=== PATIENT | male | born 1950 | race Caucasian/White ===

== ENCOUNTER → 2016-06-28 | Outpatient (CLI) | payer MEDICARE ==
[2016-06-28 10:23] LABS: ABSOLUTE BASOPHILS # (AUTO) 0.1 10^3/uL (0.0-0.2); ABSOLUTE EOSINOPHILS # (AUTO) 0.4 10^3/uL (0.0-0.6); ABSOLUTE LYMPHOCYTES (AUTO) 1.7 10^3/uL (0.5-4.7); ABSOLUTE MONOCYTES (AUTO) 0.7 10^3/uL (0.1-1.4); BASOPHILS % (AUTO) 0.9 % (0-2); EOSINOPHILS % (AUTO) 5.7 % (0-6); HEMATOCRIT 44.3 % (37.9-51.0); HEMOGLOBIN 14.7 g/dL (13.5-17.0); HGB HCT DIFFERENCE -0.2; LYMPHOCYTES % (AUTO) 25.3 % (13-45); MEAN CORPUSCULAR HGB CONC 33.2 g/dL (32.0-36.0); MEAN CORPUSCULAR VOLUME 78 fl (80-97); MONOCYTES % (AUTO) 9.9 % (3-13); RED BLOOD COUNT 5.65 10^6/uL (4.35-5.55); RED CELL DISTRIBUTION WIDTH 17.1 % (11.5-14.0); SEGMENTED NEUTROPHILS % (AUTO) 58.2 % (42-78); WHITE BLOOD COUNT 6.8 10^3/uL (4.0-10.5)
[2016-06-28 10:33] LABS: APPEARANCE,URINE CLEAR; BILIRUBIN,URINE NEGATIVE (NEGATIVE); GLUCOSE, URINE NEGATIVE (NEGATIVE); KETONES,URINE NEGATIVE (NEGATIVE); LEUKOCYTE ESTERASE,URINE NEGATIVE (NEGATIVE); NITRITE,URINE NEGATIVE (NEGATIVE); PROTEIN,URINE NEGATIVE (NEGATIVE); URINE SPECIFIC GRAVITY 1.012; UROBILINOGEN,URINE NEGATIVE mg/dL (<2.0)
[2016-06-28 10:40] LABS: ANION GAP 15 (5-19); BLOOD UREA NITROGEN 16 mg/dL (7-20); CALCIUM 9.8 mg/dL (8.4-10.2); CARBON DIOXIDE 27 mmol/L (22-30); CHLORIDE 101 mmol/L (98-107); CREATININE RESULT 0.78 mg/dL (0.52-1.25); GLUCOSE 115 mg/dL (75-110); POTASSIUM 3.9 mmol/L (3.6-5.0); SODIUM 142.7 mmol/L (137-145)
== END ==
LOC: OD 09:39
PROVIDERS: ATTEND Orthopaedic Surgery
DX: Z01.810 Encounter for preprocedural cardiovascular examination (principal); Z01.811 Encounter for preprocedural respiratory examination; Z01.818 Encounter for other preprocedural examination; Z79.899 Other long term (current) drug therapy; E11.9 Type 2 diabetes mellitus without complications; M17.12 Unilateral primary osteoarthritis, left knee
CPT/HCPCS: 36415; 71020; 80048; 81001; 83036; 85025

== ENCOUNTER → 2016-07-05 | Outpatient (CLI) | payer MEDICARE, MEDICAID ==
--- NOTE | 2016-07-05 18:24 | EKG REPORT ---
SEVERITY:- NORMAL ECG - SINUS RHYTHM : Confirmed by: Arnel Zhang MD 05-Jul-2016 18:24:11
== END ==
LOC: OD 14:01
PROVIDERS: ATTEND Orthopaedic Surgery
DX: M17.12 Unilateral primary osteoarthritis, left knee (principal)
CPT/HCPCS: 93005; 93010

== ENCOUNTER 2016-07-24 06:43 | Inpatient (IN) | payer MEDICARE, MEDICAID ==
[~2016-07-24 06:43] MED LIST: BUPIVACAINE INJ/PF LIPOSOME/PF 266 MG/20 ML SDV INFIL PRN; IBUPROFEN 800 MG in NORMAL SALINE 250 ML IV PRN; LACTATED RINGERS 1000 ML IV PRN; LANSOPRAZOLE 15 MG TAB.RAP.DR PO PRN; OXYCODONE HCL SR 10 MG TABLET PO PRN; SCOPOLAMINE HYDROBROMIDE 1.5 MG PATCH.TD72 TD PRN; VANCOMYCIN HCL 1,000 MG in DEXTROSE 5%-WATER 250 ML IV PRN
[2016-07-24 07:31] LABS: PROTHROMBIN TIME 11.7 SEC (11.4-15.4)
[2016-07-24] MEDS ORDERED: CEFAZOLIN INJ 1 GM VIAL ONE (07:31)
[2016-07-24 07:32] LABS: PARTIAL THROMBOPLASTIN TIME 28.8 SEC (23.5-35.8)
[2016-07-24] MEDS ORDERED: FENTANYL CITRATE INJ/PF 100 MCG/2 ML AMPUL ONE (07:43)
[2016-07-24] MEDS ORDERED: MIDAZOLAM 2 MG/2 ML INJ ONE (07:43)
[2016-07-24] MEDS ORDERED: KETAMINE HCL INJ 500 MG/10 ML VIAL ONE (07:43)
[2016-07-24] MEDS ORDERED: TRANEXAMIC ACID INJ/PF 1,000 MG/10 ML SDV IV ONE (07:44)
[2016-07-24] MEDS ORDERED: PROPOFOL INJ 200 MG/20 ML VIAL IV ONE (07:44)
[2016-07-24] MEDS ORDERED: DEXMEDETOMIDINE INJ 80 MCG/20 ML VIAL IV ONE (07:44)
[2016-07-24] MEDS ORDERED: THROMBIN (BOVINE) TOPICAL 20000 UNIT VIAL ONE (08:01)
[2016-07-24] MEDS ORDERED: THROMBIN (BOVINE) TOPICAL 5000 UNIT VIAL ONE (08:01)
[2016-07-24] MEDS ORDERED: BUPIVACAINE INJ/PF LIPOSOME/PF 266 MG/20 ML SDV ONE (08:02)
[2016-07-24] MEDS ORDERED: MORPHINE SULFATE 10 MG/ML INJ ONE (09:06)
[2016-07-24] MEDS ORDERED: ACETAMINOPHEN 325 MG TABLET PO PRN (09:39)
[2016-07-24] MEDS ORDERED: ZOLPIDEM TARTRATE 5 MG TABLET PO PRN (09:41)
[2016-07-24] MEDS ORDERED: MORPHINE SULFATE 10 MG/ML INJ IM PRN (09:41)
[2016-07-24] MEDS ORDERED: ONDANSETRON 4 MG TAB.RAPDIS PO PRN (09:41)
[2016-07-24] MEDS ORDERED: ONDANSETRON HCL INJ/PF 4 MG/2 ML SDV IV PRN (09:41)
[2016-07-24] MEDS ORDERED: MAG HYDROX/AL HYDROX/SIMETH SUSP 30 ML UDCUP PO PRN (09:41)
[2016-07-24] MEDS ORDERED: RINGERS SOLUTION,LACTATED 1,000 ML IV PRN (09:41)
[2016-07-24] MEDS ORDERED: DIPHENHYDRAMINE HCL 50 MG/ML VIAL IV PRN (09:41)
[2016-07-24] MEDS ORDERED: MORPHINE SULFATE 10 MG/ML INJ IV PRN ×2 (09:41)
--- NOTE | 2016-07-24 09:51 | Operative Report ---
Operative Report DATE OF SURGERY: 07/24/16 PREOPERATIVE DIAGNOSIS: Right knee arthritis OPERATION: Right knee arthroplasty SURGEON: SWATI MONZON ANESTHESIA: GA TISSUE REMOVED OR ALTERED: Bone to pathology ESTIMATED BLOOD LOSS: 150 PROCEDURE: Implants used: Femur: Striker triathlon #7 CR femur Tibia:, #6 tibia Tibial liner:, 9 mm CS insert Patella:, 38 mm oval patella Procedure with the patient supine on the operating table the. Right the limb is prepped and draped in a sterile fashion. The limb was elevated for exsanguination and the tourniquet inflated to 280 torr. A standard midline median parapatellar approach the knee is taken. Access is gained to the femoral canal through the intercondylar notch. Intramedullary alignment instrumentation used to resect 10 mm of distal femur in 5 of valgus. Sizing guide indicated a size 7 femur. Appropriate cutting jig is then used to fashion anterior posterior and chamfer cuts. A trial reduction femurs performed and this is judged to be adequate. Attention was next turned to the tibia. Using an extra medullary alignment system 9 millimeters was resected off the lateral tibial plateau. This is sized to a size 6 tibia. A trial reduction was now performed with a 7 femur and 6 tibia using a 9 millimeters spacer. It is full extension and central patellofemoral tracking. The articular surface the patella was next resected using an oscillating saw. All trial implants were removed. Polymethylmethacrylate is mixed and used to cement the above implants in place. On adequate curing the cement excess cement was removed the tourniquet was deflated hemostasis obtained the wound is then closed in layers using interrupted Vicryl followed by liberty. A sterile compressive dressing was applied and the patient returned to recovery room in satisfactory condition.
[2016-07-24] MEDS ORDERED: (PENDING PHARMACY ID) (Metformin Hcl [Glucophage] 500 MG) PO SCH (10:00)
[2016-07-24] MEDS ORDERED: METFORMIN HCL 500 MG TABLET PO ONE (11:30)
[2016-07-24] MEDS ORDERED: DEXTROSE 50%-WATER SYRINGE 25 GM/50 ML DOSE IV PRN (11:44)
[2016-07-24] MEDS ORDERED: INSULIN LISPRO 100 UNIT/ML 3 ML VIAL SUBCUT PRN (11:44)
[2016-07-24] MEDS ORDERED: GLUCAGON,HUMAN RECOMB 1 MG INJ IM PRN (11:44)
[2016-07-24] MEDS ORDERED: DEXTROSE 40% GEL 15 GM TUBE PO PRN (11:44)
[2016-07-24] MEDS ORDERED: DEXTROSE 50%-WATER SYRINGE 12.5 GM/25 ML DOSE IV PRN (11:44)
[2016-07-24] MEDS ORDERED: DEXTROSE 40% GEL 15 GM TUBE X 2 PO PRN (11:44)
[2016-07-24] MEDS ORDERED: PREGABALIN 75 MG CAPSULE PO ONE (12:00)
[2016-07-24] MEDS: MORPHINE SULFATE 10 MG/ML INJ IV PRN ×3 (13:13→20:38)
[2016-07-24] MEDS ORDERED: GLYCOPYRROLATE INJ 0.4 MG/2 ML VIAL ONE (14:37)
[2016-07-24] MEDS ORDERED: ONDANSETRON HCL INJ/PF 4 MG/2 ML SDV ONE (14:37)
[2016-07-24] MEDS ORDERED: METOCLOPRAMIDE HCL INJ/PF 10 MG/2 ML SDV ONE (14:37)
[2016-07-24] MEDS ORDERED: SUCCINYLCHOLINE CHLORIDE INJ 200 MG/10 ML VIAL ONE (14:37)
[2016-07-24] MEDS ORDERED: LIDOCAINE 2% INJ-PF (20 MG/ML) 10 ML AMPUL ONE (14:37)
[2016-07-24] MEDS ORDERED: NEOSTIGMINE METHYLSULFATE 10 MG/10 ML VIAL ONE (14:37)
[2016-07-24] MEDS ORDERED: PHENYLEPHRINE HCL INJ/PF 10 MG/1 ML SDV ONE (14:37)
[2016-07-24] MEDS: IBUPROFEN 800 MG in NORMAL SALINE 250 ML IV SCH ×2 (14:48→21:50)
[2016-07-24] MEDS: PRENATAL VITAMIN W-O CA NO5/FE FUMARATE/FA CAPSULE PO SCH (14:49)
[2016-07-24] MEDS: SENNOSIDES/DOCUSATE 8.6-50 MG 1 EACH TABLET PO SCH (17:26)
[2016-07-24] MEDS: APIXABAN 5 MG TABLET PO SCH (17:27)
[2016-07-24] MEDS: METFORMIN HCL 500 MG TABLET PO SCH (17:27)
[2016-07-24] MEDS ORDERED: (PENDING PHARMACY ID) (Pravastatin Sodium [Pravastatin Sodium] 40 MG) PO SCH (18:00)
[2016-07-24] MEDS ORDERED: VANCOMYCIN HCL 1,000 MG in DEXTROSE 5%-WATER 250 ML IV ONE (21:40)
[2016-07-24] MEDS: ATORVASTATIN CALCIUM 10 MG TABLET PO SCH (21:51)
[2016-07-24] MEDS: OXYCODONE HCL SR 10 MG TABLET PO SCH (21:51)
[2016-07-24] MEDS: PREGABALIN 75 MG CAPSULE PO SCH (21:52)
[2016-07-25] MEDS: LANSOPRAZOLE 30 MG TAB.RAP.DR PO SCH (05:45)
[2016-07-25] MEDS: MORPHINE SULFATE 10 MG/ML INJ IV PRN (05:46)
[2016-07-25] MEDS: IBUPROFEN 800 MG in NORMAL SALINE 250 ML IV SCH ×3 (05:46→22:23)
[2016-07-25 06:33] LABS: HEMATOCRIT 33.7 % (37.9-51.0); HEMOGLOBIN 11.4 g/dL (13.5-17.0); HGB HCT DIFFERENCE 0.5; MEAN CORPUSCULAR HEMOGLOBIN 26.8 pg (27.0-33.4); MEAN CORPUSCULAR HGB CONC 33.9 g/dL (32.0-36.0); MEAN CORPUSCULAR VOLUME 79 fl (80-97); RED BLOOD COUNT 4.27 10^6/uL (4.35-5.55); RED CELL DISTRIBUTION WIDTH 16.3 % (11.5-14.0); WHITE BLOOD COUNT 7.3 10^3/uL (4.0-10.5)
[2016-07-25 06:52] LABS: ANION GAP 10 (5-19); BLOOD UREA NITROGEN 12 mg/dL (7-20); CALCIUM 9.2 mg/dL (8.4-10.2); CARBON DIOXIDE 27 mmol/L (22-30); CHLORIDE 104 mmol/L (98-107); CREATININE RESULT 0.61 mg/dL (0.52-1.25); GLUCOSE 138 mg/dL (75-110); POTASSIUM 4.1 mmol/L (3.6-5.0)
--- NOTE | 2016-07-25 06:53 | PDOC PROGRESS REPORT ---
Subjective Progress Note for:: 07/25/16 Subjective:: Patient was quite happy with his postoperative course. His preoperative pain is completely alleviated. Physical Exam Vital Signs: Temp Pulse Resp BP Pulse Ox 36.3 C 98 18 135/74 H 98 07/24/16 20:14 07/24/16 20:14 07/24/16 20:14 07/24/16 20:14 07/24/16 20:14 Intake & Output 07/23/16 07/24/16 07/25/16 06:59 06:59 06:59 Intake Total 6304 Output Total 3925 Balance 2379 General appearance: PRESENT: no acute distress Head exam: PRESENT: normocephalic Respiratory exam: PRESENT: unlabored Cardiovascular exam: PRESENT: RRR Pulses: PRESENT: +1 pedal pulses bilateral Vascular exam: PRESENT: normal capillary refill GI/Abdominal exam: PRESENT: soft Extremities exam: PRESENT: other - Right lower extremity dressing has been reinforced. Distal neurovascular examinations intact. Psychiatric exam: PRESENT: appropriate affect, normal mood. ABSENT: homicidal ideation, suicidal ideation Results Laboratory Results: 07/25/16 06:04 07/24/16 07/25/16 07:12 06:04 WBC 7.3 RBC 4.27 L Hgb 11.4 L Hct 33.7 L MCV 79 L MCH 26.8 L MCHC 33.9 RDW 16.3 H Plt Count 231 Potassium 4.0 Impressions: Knee X-Ray 07/24/16 09:42 IMPRESSION: SATISFACTORY POSTOPERATIVE right KNEE. Status: Imported from PACS Assessment & Plan - Diagnosis (1) Arthritis of right knee Is this a current diagnosis for this admission?: YesPlan: 65-year-old white male with multiple ongoing medical issues who is now postop day 1 from right total knee arthroplasty. Plan will be for mobilization with physical therapy and weightbearing as tolerated basis. - Time Time Spent with patient: 15-24 minutes Critical Time spent with patient: 15-24 minutes Anticipated discharge: Home with Homehealth Within: within 24 hours
[2016-07-25] MEDS: METFORMIN HCL 500 MG TABLET PO SCH ×2 (09:32→17:25)
[2016-07-25] MEDS: PRENATAL VITAMIN W-O CA NO5/FE FUMARATE/FA CAPSULE PO SCH (09:32)
[2016-07-25] MEDS: FUROSEMIDE 40 MG TABLET PO SCH (09:32)
[2016-07-25] MEDS: OXYCODONE HCL SR 10 MG TABLET PO SCH ×2 (09:34→22:23)
[2016-07-25] MEDS: POTASSIUM CHLORIDE 10 MEQ TABLET.SA PO SCH (09:40)
[2016-07-25] MEDS: APIXABAN 5 MG TABLET PO SCH ×2 (09:41→17:25)
[2016-07-25] MEDS: PREGABALIN 75 MG CAPSULE PO SCH ×2 (09:41→22:23)
[2016-07-25] MEDS: SENNOSIDES/DOCUSATE 8.6-50 MG 1 EACH TABLET PO SCH ×2 (09:41→17:25)
[2016-07-25] MEDS: OXYCODONE HCL IR 5 MG TABLET PO PRN (14:11)
[2016-07-25] MEDS: ATORVASTATIN CALCIUM 10 MG TABLET PO SCH (22:23)
[2016-07-26] MEDS: OXYCODONE HCL IR 5 MG TABLET PO PRN (04:50)
[2016-07-26] MEDS: IBUPROFEN 800 MG in NORMAL SALINE 250 ML IV SCH (06:04)
[2016-07-26] MEDS: LANSOPRAZOLE 30 MG TAB.RAP.DR PO SCH (06:04)
--- NOTE | 2016-07-26 07:25 | PDOC DISCHARGE SUMMARY ---
General - Admit/Disc Date/PCP Admission Date/Primary Care Provider: 07/24/16 06:44 ZACK HARTLEY, Discharge Date: 07/26/16 - Discharge Diagnosis (1) Arthritis of right knee Is this a current diagnosis for this admission?: Yes - Additional Information Resuscitation Status: Full Code Discharge Diet: As Tolerated, Diabetic Discharge Activity: Balance Activity w/Rest Home Medications: Metformin HCl [Glucophage] 500 mg PO BID 09/24/14 Furosemide [Lasix] 40 mg PO QAM 07/12/16 Potassium Chloride [Klor-Con 10] 10 meq PO QAM 07/12/16 Apixaban [Eliquis 5 mg Tablet] 5 mg PO BID #0 tablet 07/26/16 Atorvastatin Calcium [Lipitor 10 mg Tablet] 10 mg PO QHS #0 tablet 07/26/16 Oxycodone HCl [Oxy-Ir 5 mg Tablet] 5 mg PO Q6HP PRN #0 tablet 07/26/16 History of Present Illness History of Present Illness: NINO ZELAYA is a 65 year old male who presented with progressive right knee pain and functional disability secondary osteoarthritis. Is admitted for elective right knee arthroplasty. Hospital Course Hospital Course: The patient is admitted through the operating room where he undergoes uncomplicated right knee arthroplasty. His returned to floor in satisfactory condition. Makes excellent progress with physical therapy for weightbearing as tolerated ambulation. Range of motion. His dressing is changed on postop day 2. Wound is clean dry and intact. Physical Exam Vital Signs: Temp Pulse Resp BP Pulse Ox 36.7 C 108 H 20 138/69 H 97 07/25/16 23:53 07/25/16 23:53 07/25/16 23:53 07/25/16 23:53 07/25/16 23:53 Intake & Output 07/25/16 07/26/16 07/27/16 06:59 06:59 06:59 Intake Total 6306 940 Output Total 6793 1130 Balance 2379 -810 General appearance: PRESENT: no acute distress Head exam: PRESENT: normocephalic Respiratory exam: PRESENT: unlabored Cardiovascular exam: PRESENT: RRR Vascular exam: PRESENT: normal capillary refill GI/Abdominal exam: PRESENT: soft Rectal exam: PRESENT: deferred Extremities exam: PRESENT: other - Right lower extremity dressing is changed on postop day 2. Wound is well approximated with liberty. There is no erythema. There is no active drainage. Distal neurovascular examinations intact. Psychiatric exam: PRESENT: appropriate affect, normal mood. ABSENT: homicidal ideation, suicidal ideation Results Laboratory Results: 07/25/16 06:04 07/25/16 06:04 Impressions: Knee X-Ray 07/24/16 09:42 IMPRESSION: SATISFACTORY POSTOPERATIVE right KNEE. Status: Imported from PACS Qualifiers VTE patient discharged on overlapping Therapy?: Yes Plan Discharge Plan: Patient be discharged home with home health physical therapy, home health nursing, we'll Walker, bedside commode. Follow-up with Dr. Burris in the [facility] for surgery approximately 2 weeks for staple removal. Time Spent: Less than 30 Minutes
[2016-07-26 07:38] LABS: HEMATOCRIT 31.8 % (37.9-51.0); HEMOGLOBIN 10.8 g/dL (13.5-17.0); HGB HCT DIFFERENCE 0.6; MEAN CORPUSCULAR HEMOGLOBIN 26.8 pg (27.0-33.4); MEAN CORPUSCULAR HGB CONC 34.1 g/dL (32.0-36.0); MEAN CORPUSCULAR VOLUME 79 fl (80-97); RED BLOOD COUNT 4.05 10^6/uL (4.35-5.55); RED CELL DISTRIBUTION WIDTH 16.4 % (11.5-14.0); WHITE BLOOD COUNT 8.6 10^3/uL (4.0-10.5)
[2016-07-26] MEDS: METFORMIN HCL 500 MG TABLET PO SCH (08:20)
[2016-07-26] MEDS: FUROSEMIDE 40 MG TABLET PO SCH (08:21)
[2016-07-26] MEDS: POTASSIUM CHLORIDE 10 MEQ TABLET.SA PO SCH (08:21)
[2016-07-26] MEDS: PREGABALIN 75 MG CAPSULE PO SCH (09:16)
[2016-07-26] MEDS: PRENATAL VITAMIN W-O CA NO5/FE FUMARATE/FA CAPSULE PO SCH (09:16)
[2016-07-26] MEDS: OXYCODONE HCL SR 10 MG TABLET PO SCH (09:16)
[2016-07-26] MEDS: APIXABAN 5 MG TABLET PO SCH (09:17)
[2016-07-26] MEDS: SENNOSIDES/DOCUSATE 8.6-50 MG 1 EACH TABLET PO SCH (09:17)
[2016-07-26] MEDS: MORPHINE SULFATE 10 MG/ML INJ IV PRN (11:31)
[2016-07-26 12:20] VITALS: BP 121/70
== END 2016-07-26 13:33 | disposition home health service (06) | DRG 470 ==
LOC: UNDOADMIN 06:43 → INOR 06:43 → UNDOADMIN 09:41 → INOR 09:41 → 4S 11:44
PROVIDERS: ADMIT Orthopaedic Surgery; ATTEND Orthopaedic Surgery
PROC: 0SRC0J9 Replacement of Right Knee Joint with Synthetic Substitute, Cemented, Open Approach (ICD-10-PCS; principal; 2016-07-24 08:45)
DX: M17.11 Unilateral primary osteoarthritis, right knee (principal); C91.10 Chronic lymphocytic leukemia of B-cell type not having achieved remission; E11.9 Type 2 diabetes mellitus without complications; J44.9 Chronic obstructive pulmonary disease, unspecified; I10 Essential (primary) hypertension; J45.909 Unspecified asthma, uncomplicated; M54.9 Dorsalgia, unspecified; K76.0 Fatty (change of) liver, not elsewhere classified; G47.30 Sleep apnea, unspecified; F32.9 Major depressive disorder, single episode, unspecified; F41.9 Anxiety disorder, unspecified; M06.9 Rheumatoid arthritis, unspecified; Z96.652 Presence of left artificial knee joint; Z96.641 Presence of right artificial hip joint; G43.909 Migraine, unspecified, not intractable, without status migrainosus; D50.9 Iron deficiency anemia, unspecified; Z92.21 Personal history of antineoplastic chemotherapy; Z79.02 Long term (current) use of antithrombotics/antiplatelets; Z86.718 Personal history of other venous thrombosis and embolism; Z90.49 Acquired absence of other specified parts of digestive tract; Z79.84 Long term (current) use of oral hypoglycemic drugs; Z87.891 Personal history of nicotine dependence
CPT/HCPCS: 01402; 36415; 80048; 82962; 84132; 85027; 85610; 85730; 88305; 88311; 94799; C2625; C9290; G8978-GP; G8979-GP; G8987-GO; G8988-GO; J0330; J0690; J1200; J1741; J2250; J2270; J2370; J2405; J2704; J2765; J3010; J3370; J3490; J7050; J7060

== ENCOUNTER 2016-09-09 12:13 | Emergency (ER) | payer MEDICARE, MEDICAID ==
--- NOTE | 2016-09-09 12:24 | ER Document Report ---
ED Medical Screen (RME) - General Stated Complaint: URINARY PROBLEM Mode of Arrival: Ambulatory Information source: Patient Notes: Patient presents to the emergency department with reports of noted blood in his urine. Reports flank pain days ago no pain now. Denies fever vomiting diarrhea. Reports history of kidney stones. Reports decreased urine output now. Recent knee replaced 6 weeks ago. I have greeted and performed a rapid initial assessment of this patient. A comprehensive ED assessment and evaluation of the patient, analysis of test results and completion of the medical decision making process will be conducted by additional ED providers. TRAVEL OUTSIDE OF THE [place] IN LAST 30 DAYS: No - Related Data Allergies/Adverse Reactions: adhesive tape [Adhesive Tape] Adverse Reaction (Intermediate, Verified 09/09/16 12:23) SKIN TEARS/PEELS Past Medical History - Past Medical History Cardiac Medical History: Reports: Hx Congestive Heart Failure, Hx Hypercholesterolemia, Hx Hypertension, Hx Pulmonary Embolism Denies: Hx Atrial Fibrillation, Hx Coronary Artery Disease, Hx Heart Attack, Hx Peripheral Vascular Disease, Hx Heart Murmur Pulmonary Medical History: Reports: Hx Asthma - pediatric, Hx Bronchitis, Hx COPD, Hx Pneumonia, Hx Respiratory Failure, Hx Sleep Apnea - Dx'ed 2005, Does not use CPAP at this time Denies: Hx Tuberculosis Neurological Medical History: Denies: Hx Cerebrovascular Accident, Hx Seizures Endocrine Medical History: Reports: Hx Diabetes Mellitus Type 2. Denies: Hx Graves' Disease, Hx Hyperthyroidism, Hx Hypothyroidism Renal/ Medical History: Reports: Hx Benign Prostatic Hyperplasia - nocturia x 2/night, Hx Epididymitis, Hx Kidney Stones - "multiple", denies ESWL and/or surgery. Denies: Hx End Stage Renal Disease, Hx Peritoneal Dialysis Malignancy Medical History: Reports Hx Leukemia - Chronic lymphocytic leukemia 2015, Denies Hx Lung Cancer GI Medical History: Reports: Hx Cirrhosis. Denies: Hx Crohn's Disease, Hx Gastroesophageal Reflux Disease, Hx Hiatal Hernia, Hx Irritable Bowel, Hx Liver Failure - Cirrhosis, Fatty Liver, Hx Ulcer Musculoskeltal Medical History: Reports Hx Arthritis, Denies Hx Fibromyalgia, Denies Hx Multiple Sclerosis, Denies Hx Muscular Dystrophy Psychiatric Medical History: Reports: Hx Anxiety, Hx Depression - Anxiety Denies: Hx Bipolar Disorder, Hx Dementia, Hx Post Traumatic Stress Disorder, Hx Schizophrenia Traumatic Medical History: Denies: Hx Fractures Infectious Medical History: Denies: Hx HIV Past Surgical History: Reports: Hx Abdominal Surgery, Hx Appendectomy, Hx Bowel Surgery, Hx Orthopedic Surgery - R hip replaced and revised, L knee replaced, cervical fusion, lumbar fusion. Denies: Hx Cholecystectomy, Hx Colostomy, Hx Coronary Artery Bypass Graft, Hx Gastric Bypass Surgery, Hx Herniorrhaphy, Hx Pacemaker, Hx Tonsillectomy - Immunizations Hx Diphtheria, Pertussis, Tetanus Vaccination: No
[2016-09-09 12:53] LABS: ABSOLUTE EOSINOPHILS # (AUTO) 0.2 10^3/uL (0.0-0.6); ABSOLUTE LYMPHOCYTES (AUTO) 1.8 10^3/uL (0.5-4.7); ABSOLUTE MONOCYTES (AUTO) 0.6 10^3/uL (0.1-1.4); ABSOLUTE NEUT (AUTO) 5.2 10^3/uL (1.7-8.2); BASOPHILS % (AUTO) 0.6 % (0-2); EOSINOPHILS % (AUTO) 2.9 % (0-6); HEMATOCRIT 37.8 % (37.9-51.0); HEMOGLOBIN 12.9 g/dL (13.5-17.0); HGB HCT DIFFERENCE 0.9; MEAN CORPUSCULAR HEMOGLOBIN 27.6 pg (27.0-33.4); MEAN CORPUSCULAR HGB CONC 34.1 g/dL (32.0-36.0); MEAN CORPUSCULAR VOLUME 81 fl (80-97); MONOCYTES % (AUTO) 7.9 % (3-13); RED BLOOD COUNT 4.67 10^6/uL (4.35-5.55); RED CELL DISTRIBUTION WIDTH 14.9 % (11.5-14.0); SEGMENTED NEUTROPHILS % (AUTO) 65.6 % (42-78)
[2016-09-09 12:58] LABS: PROTHROMBIN TIME 11.9 SEC (11.4-15.4)
[2016-09-09 12:59] LABS: PARTIAL THROMBOPLASTIN TIME 34.3 SEC (23.5-35.8)
[2016-09-09 13:13] LABS: ALANINE AMINOTRANSFERASE 28 U/L (21-72); ALBUMIN 4.3 g/dL (3.5-5.0); ALKALINE PHOSPHATASE 71 U/L (38-126); ANION GAP 17 (5-19); APPEARANCE,URINE CLOUDY; ASPARTATE AMINO TRANSFERASE 20 U/L (17-59); BILIRUBIN,DIRECT 0.2 mg/dL (0.0-0.4); BILIRUBIN,TOTAL 1.1 mg/dL (0.2-1.3); BILIRUBIN,URINE NEGATIVE (NEGATIVE); BLOOD UREA NITROGEN 13 mg/dL (7-20); CALCIUM 9.7 mg/dL (8.4-10.2); CARBON DIOXIDE 25 mmol/L (22-30); CHLORIDE 102 mmol/L (98-107); CREATININE RESULT 0.72 mg/dL (0.52-1.25); GLUCOSE 105 mg/dL (75-110); GLUCOSE, URINE NEGATIVE (NEGATIVE); KETONES,URINE NEGATIVE (NEGATIVE); LEUKOCYTE ESTERASE,URINE NEGATIVE (NEGATIVE); NITRITE,URINE NEGATIVE (NEGATIVE); PROTEIN,URINE 100 mg/dL (NEGATIVE); SODIUM 143.5 mmol/L (137-145); URINE SPECIFIC GRAVITY 1.014; UROBILINOGEN,URINE NEGATIVE mg/dL (<2.0)
--- NOTE | 2016-09-09 14:24 | ER Document Report ---
ED General - General Chief Complaint: Urinary Problem Stated Complaint: URINARY PROBLEM Mode of Arrival: Ambulatory TRAVEL OUTSIDE OF THE [place] IN LAST 30 DAYS: No - HPI Patient complains to provider of: left flank pain and hematuria Notes: Patient with a history of kidney stones coming in states vomiting ago was lifting something heavy when he started having back pain more on the left flank region and then saw his PCP today started having hematuria therefore, PCP who referred the patient to the ER. Otherwise patient has no other complaints states he is pain-free at this time. Denies any fevers chills nausea vomiting diarrhea. Denies any recent travel trauma or antibiotics. - Related Data Allergies/Adverse Reactions: adhesive tape [Adhesive Tape] Adverse Reaction (Intermediate, Verified 09/09/16 12:23) SKIN TEARS/PEELS Past Medical History - General Information source: Patient - Social History Smoking Status: Never Smoker Chew tobacco use (# tins/day): No Frequency of alcohol use: None Drug Abuse: None Family History: None - Past Medical History Cardiac Medical History: Reports: Hx Congestive Heart Failure, Hx Hypercholesterolemia, Hx Hypertension, Hx Pulmonary Embolism Denies: Hx Atrial Fibrillation, Hx Coronary Artery Disease, Hx Heart Attack, Hx Peripheral Vascular Disease, Hx Heart Murmur Pulmonary Medical History: Reports: Hx Asthma - pediatric, Hx Bronchitis, Hx COPD, Hx Pneumonia, Hx Respiratory Failure, Hx Sleep Apnea - Dx'ed 2005, Does not use CPAP at this time Denies: Hx Tuberculosis Neurological Medical History: Denies: Hx Cerebrovascular Accident, Hx Seizures Endocrine Medical History: Reports: Hx Diabetes Mellitus Type 2. Denies: Hx Graves' Disease, Hx Hyperthyroidism, Hx Hypothyroidism Renal/ Medical History: Reports: Hx Benign Prostatic Hyperplasia - nocturia x 2/night, Hx Epididymitis, Hx Kidney Stones - "multiple", denies ESWL and/or surgery. Denies: Hx End Stage Renal Disease, Hx Peritoneal Dialysis Malignancy Medical History: Reports Hx Leukemia - Chronic lymphocytic leukemia 2016, Denies Hx Lung Cancer GI Medical History: Reports: Hx Cirrhosis. Denies: Hx Crohn's Disease, Hx Gastroesophageal Reflux Disease, Hx Hiatal Hernia, Hx Irritable Bowel, Hx Liver Failure - Cirrhosis, Fatty Liver, Hx Ulcer Musculoskeltal Medical History: Reports Hx Arthritis, Denies Hx Fibromyalgia, Denies Hx Multiple Sclerosis, Denies Hx Muscular Dystrophy Psychiatric Medical History: Reports: Hx Anxiety, Hx Depression - Anxiety Denies: Hx Bipolar Disorder, Hx Dementia, Hx Post Traumatic Stress Disorder, Hx Schizophrenia Traumatic Medical History: Denies: Hx Fractures Infectious Medical History: Denies: Hx HIV Past Surgical History: Reports: Hx Abdominal Surgery, Hx Appendectomy, Hx Bowel Surgery, Hx Orthopedic Surgery - R hip replaced and revised, L knee replaced, cervical fusion, lumbar fusion. Denies: Hx Cholecystectomy, Hx Colostomy, Hx Coronary Artery Bypass Graft, Hx Gastric Bypass Surgery, Hx Herniorrhaphy, Hx Pacemaker, Hx Tonsillectomy - Immunizations Hx Diphtheria, Pertussis, Tetanus Vaccination: No Hx Pneumococcal Vaccination: 06/18/13 Review of Systems - Review of Systems Constitutional: No symptoms reported EENT: No symptoms reported Cardiovascular: No symptoms reported Respiratory: No symptoms reported Gastrointestinal: No symptoms reported Genitourinary: Flank pain - Left Male Genitourinary: No symptoms reported Musculoskeletal: No symptoms reported Skin: No symptoms reported Hematologic/Lymphatic: No symptoms reported Neurological/Psychological: No symptoms reported -: Yes All other systems reviewed and negative Physical Exam - Vital signs Vitals: Temp Pulse Resp BP Pulse Ox 98.1 F 92 20 140/76 H 99 09/09/16 12:23 09/09/16 12:23 09/09/16 12:23 09/09/16 12:23 09/09/16 12:23 Interpretation: Normal - General General appearance: Appears well, Alert - HEENT Head: Normocephalic, Atraumatic Eyes: Normal Pupils: PERRL - Respiratory Respiratory status: No respiratory distress Chest status: Nontender Breath sounds: Normal Chest palpation: Normal - Cardiovascular Rhythm: Regular Heart sounds: Normal auscultation Murmur: No - Abdominal Inspection: Normal Distension: No distension Bowel sounds: Normal Tenderness: Nontender Organomegaly: No organomegaly - Back Back: Normal, Nontender - Extremities General upper extremity: Normal inspection, Nontender, Normal color, Normal ROM , Normal temperature General lower extremity: Normal inspection, Nontender, Normal color, Normal ROM , Normal temperature, Normal weight bearing. No: Amandeep's sign - Neurological Neuro grossly intact: Yes Cognition: Normal Orientation: AAOx4 Mobile Coma Scale Eye Opening: Spontaneous Mobile Coma Scale Verbal: Oriented Mobile Coma Scale Motor: Obeys Commands Leeann Coma Scale Total: 15 Speech: Normal Motor strength normal: LUE, RUE, LLE, RLE Sensory: Normal - Psychological Associated symptoms: Normal affect, Normal mood - Skin Skin Temperature: Warm Skin Moisture: Dry Skin Color: Normal Course - Re-evaluation Re-evalutation: 09/09/16 14:29 Patient's CAT scan that showed a 3 mm mid ureter kidney stone. More likely's reason patient is having hematuria. Otherwise patient's is no signs of sepsis will be discharged home follow-up to primary care physician. - Vital Signs Vital signs: Temp Pulse Resp BP Pulse Ox 98.1 F 92 20 140/76 H 99 09/09/16 12:23 09/09/16 12:23 09/09/16 12:30 09/09/16 12:23 09/09/16 12:23 - Laboratory Result Diagrams: 09/09/16 12:35 09/09/16 12:35 Laboratory results interpreted by me: 09/09/16 09/09/16 12:35 12:35 Hgb 12.9 L Hct 37.8 L RDW 14.9 H Urine Protein 100 H Urine Blood LARGE H Discharge - Discharge Clinical Impression: kidney stone left ureter Condition: Good Disposition: HOME, SELF-CARE Instructions: Kidney Stone ([facility]), Oral Narcotic Medication ([facility]) Additional Instructions: Take medications as prescribed. Return to ER symptoms worsen. Follow-up with your primary care physician. Prescriptions: Ondansetron [Zofran Odt 4 mg Tablet] 4 mg PO Q4HP PRN #30 tab.rapdis PRN Reason: Hydrocodone Bit/Acetaminophen [Hydrocodon-Acetaminophen 5-325] 1 each PO Q6 #30 tablet Tamsulosin HCl [Flomax 0.4 mg Cap.sr] 0.4 mg PO DAILY #7 cap.sr.24h Referrals: ZACK HARTLEY MD [Primary Care Provider] - Follow up in 3-5 days
[2016-09-09 14:35] VITALS: BP 108/69
== END 2016-09-09 14:35 | disposition home or self-care (01) ==
LOC: ER 12:13
DX: N20.1 Calculus of ureter (principal); R31.9 Hematuria, unspecified; R10.9 Unspecified abdominal pain; I50.9 Heart failure, unspecified; E78.00 Pure hypercholesterolemia, unspecified; I11.0 Hypertensive heart disease with heart failure; J44.9 Chronic obstructive pulmonary disease, unspecified; E11.9 Type 2 diabetes mellitus without complications; Z87.442 Personal history of urinary calculi; Z86.711 Personal history of pulmonary embolism; Z85.6 Personal history of leukemia; Z96.641 Presence of right artificial hip joint; Z96.652 Presence of left artificial knee joint; Z98.1 Arthrodesis status; Z95.1 Presence of aortocoronary bypass graft; Z98.84 Bariatric surgery status
CPT/HCPCS: 36415; 76380; 80053; 81001; 85025; 85610; 85730; 99284

== ENCOUNTER → 2017-03-30 | Outpatient (CLI) | payer MEDICAID, MEDICARE ==
--- NOTE | 2017-03-30 12:35 | RADIOLOGY REPORT (SQ) ---
EXAM DESCRIPTION: CT ABD/PELVIS NO ORAL OR IV COMPLETED DATE/TIME: 03/30/2017 11:40 am REASON FOR STUDY: HEMATURIA, UNSPECIFIED R31.9 HEMATURIA, UNSPECIFIED COMPARISON: CT abdomen pelvis 09/09/2016, 08/26/2015, 02/09/2016 is TECHNIQUE: CT scan of the abdomen and pelvis performed without intravenous or oral contrast. Images reviewed with lung, soft tissue, and bone windows. Reconstructed coronal and sagittal MPR images revi ewed. All images stored on PACS. All CT scanners at this facility use dose modulation, iterative reconstruction, and/or weight based d osing when appropriate to reduce radiation dose to as low as reasonably achievable (ALARA). [facility]: Dose Right [facility]: CareDose [facility]: Dose Right [facility]: Teradose 4D [facility]: Smart Smish RADIATION DOSE: Up-to-date CT equipment and radiation dose reduction techniques were employed. CTDIv ol: 16.4 mGy. DLP: 860 mGy-cm.mGy. LIMITATIONS: Streak artifact in the pelvis from right hip replacement FINDINGS: On axial image 47 and coronal image 37, a 4 mm calculus is present in the left proximal ureter. There is mild left hydronephrosis. Stone is similar as compared to CT exam 09/09/2016. Left kidney is otherwise unremarkable. No gross cysts or masses. No other left ureteral stones. LOWER CHEST: No significant findings. No nodules or infiltrates. NON-CONTRASTED LIVER, SPLEEN, ADRENALS: Evaluation limited by lack of IV contrast. No identified sign ificant masses. Multiple small hepatic cyst, unchanged from prior studies. PANCREAS: No masses. No peripancreatic inflammatory changes. GALLBLADDER: No identified stones by CT criteria. No inflammatory changes to suggest cholecystitis. RIGHT KIDNEY AND URETER: No suspicious masses. Assessment limited by lack of IV contrast. No signif icant calcifications. No hydronephrosis or hydroureter. LEFT KIDNEY AND URETER: As above AORTA AND RETROPERITONEUM: Distal abdominal aorta ectasia, 3.4 x 2.8 cm just above the iliac bifurcat ion. Very heavy atherosclerotic calcification of the celiac artery, SMA, and bilateral renal arterie s BOWEL AND PERITONEAL CAVITY: No obvious masses or inflammatory changes. No free fluid. Large amount of stool throughout the colon. Anastomotic rectosigmoid surgical liberty. APPENDIX: Normal, axial image 38 PELVIS, BLADDER, AND ABDOMINAL WALL:Streak artifact from right hip replacement. No gross free fluid or adenopathy. Small fat containing bilateral inguinal hernias. BONES: Post fusion at L5-S1. OTHER: No other significant finding. IMPRESSION: 4 mm stone in the left proximal ureter with mild left hydronephrosis. COMMENT: Quality ID # [id number]: Final reports with documentation of one or more dose reduction techniques (e.g., Automated exposure control, adjustment of the mA and/or kV according to patient size, use of iterative reconstruction technique) TECHNICAL DOCUMENTATION: JOB ID: [id number] [employer]- All Rights Reserved
== END ==
LOC: RAD 11:10
PROVIDERS: ATTEND Internal Medicine
DX: R31.9 Hematuria, unspecified (principal)
CPT/HCPCS: 74176

== ENCOUNTER → 2017-05-25 | Outpatient (CLI) | payer MEDICAID, MEDICARE ==
--- NOTE | 2017-05-25 15:58 | RADIOLOGY REPORT (SQ) ---
EXAM DESCRIPTION: NM 3 PHASE BONE SCAN COMPLETED DATE/TIME: 05/25/2017 3:45 pm REASON FOR STUDY: M89.00 ALGONEURODYSTROPHY, UNSPECIFIED SITE M89.00 ALGONEURODYSTROPHY, UNSPECIFIE D SITE COMPARISON: No available imaging studies for comparison. RADIONUCLIDE AND DOSE: 21.3 millicuries Tc99m MDP. The route of agent administration: Intravenous. ADDITIONAL DRUGS AND DOSES: None. TECHNIQUE: Following injection of the radiopharmaceutical, serial blood flow images acquired. Equil ibrium blood pool images then acquired. Routine delayed images at 3 hour acquired of the areas of cl inical concern with additional focused images as needed. AREA OF INTEREST: Bilateral wrist. LIMITATIONS: None. FINDINGS: VASCULAR FLOW IMAGES: No asymmetry or focal areas of hyperemia. BLOOD POOL IMAGES: Mild hyper profusion in the right metacarpals and base of the left 1st metacarpal. BONES: Increased uptake in both wrists and the base of the 3rd phalanges bilaterally. More subtle up take base of the left 2nd phalanx. KIDNEYS: Kidneys not imaged. OTHER: No other significant finding. IMPRESSION: Fairly symmetric pattern in the wrists suspicious for complex regional pain syndrome. COMMENT: Quality measure 147: Current bone scan is compared with any available plain radiographs, p rior bone scans, and CT/MRI. TECHNICAL DOCUMENTATION: JOB ID: [id number]- All Rights Reserved
== END ==
LOC: RAD 11:14
PROVIDERS: ATTEND Family Medicine
DX: M89.00 Algoneurodystrophy, unspecified site (principal)
CPT/HCPCS: 78315; A9561; Q9969

== ENCOUNTER 2017-08-30 12:07 | Day surgery (SDC) | payer MEDICARE ==
[2017-08-29 12:42] LABS: HEMATOCRIT 40.9 % (37.9-51.0); HEMOGLOBIN 13.8 g/dL (13.5-17.0); MEAN CORPUSCULAR HEMOGLOBIN 28.5 pg (27.0-33.4); MEAN CORPUSCULAR HGB CONC 33.9 g/dL (32.0-36.0); MEAN CORPUSCULAR VOLUME 84 fl (80-97); PLATELET COUNT 389 10^3/uL (150-450); RED BLOOD COUNT 4.86 10^6/uL (4.35-5.55); RED CELL DISTRIBUTION WIDTH 14.9 % (11.5-14.0); WHITE BLOOD COUNT 5.7 10^3/uL (4.0-10.5)
[2017-08-29 12:57] LABS: ANION GAP 10 (5-19); BLOOD UREA NITROGEN 16 mg/dL (7-20); CALCIUM 10.1 mg/dL (8.4-10.2); CARBON DIOXIDE 30 mmol/L (22-30); CHLORIDE 103 mmol/L (98-107); GLUCOSE 100 mg/dL (75-110); POTASSIUM 4.9 mmol/L (3.6-5.0)
[2017-08-29 12:58] LABS: APPEARANCE,URINE CLEAR; BILIRUBIN,URINE NEGATIVE (NEGATIVE); COLOR,URINE YELLOW; GLUCOSE, URINE NEGATIVE (NEGATIVE); KETONES,URINE NEGATIVE (NEGATIVE); LEUKOCYTE ESTERASE,URINE NEGATIVE (NEGATIVE); NITRITE,URINE NEGATIVE (NEGATIVE); PROTEIN,URINE NEGATIVE (NEGATIVE); URINE SPECIFIC GRAVITY 1.015; UROBILINOGEN,URINE NEGATIVE mg/dL (<2.0)
--- NOTE | 2017-08-29 13:16 | RADIOLOGY REPORT (SQ) ---
EXAM DESCRIPTION: CHEST PA/LATERAL COMPLETED DATE/TIME: 08/29/2017 12:12 pm REASON FOR STUDY: PRE OP COMPARISON: 06/28/2016 EXAM PARAMETERS: NUMBER OF VIEWS: two views TECHNIQUE: Digital Frontal and Lateral radiographic views of the chest acquired. RADIATION DOSE: NA LIMITATIONS: none FINDINGS: LUNGS AND PLEURA: The lungs are hyperexpanded. There is no infiltrate or effusion. There is no mass. (nipple shadows are projected over the lower lung dc.) MEDIASTINUM AND HILAR STRUCTURES: No masses or contour abnormalities. HEART AND VASCULAR STRUCTURES: Heart normal size. No evidence for failure. BONES: No acute findings. HARDWARE: None in the chest. OTHER: No other significant finding. IMPRESSION: Chronic lung changes with no acute cardiopulmonary disease. TECHNICAL DOCUMENTATION: JOB ID: [id number] [employer]- All Rights Reserved Reading location - IP/workstation name: [email or web address]
[2017-08-29 13:34] LABS: ABSOLUTE LYMPHOCYTES# (MANUAL) 2.3 10^3/uL (0.5-4.7); ABSOLUTE MONOCYTES # (MANUAL) 0.2 10^3/uL (0.1-1.4); ABSOLUTE NEUTROPHILS# (MANUAL) 2.8 10^3/uL (1.7-8.2); BASOPHILS % (MANUAL) 2 % (0-2); EOSINOPHILS % (MANUAL) 5 % (0-6); LYMPHOCYTES % (MANUAL) 36 % (13-45); MONOCYTES % (MANUAL) 4 % (3-13); SEGMENTED NEUTROPHILS % (MAN) 49 % (42-78); TOTAL CELLS COUNTED 100
[2017-08-29 13:35] LABS: OVALOCYTES 1+; PLATELET COMMENT ADEQUATE; POIKILOCYTOSIS 1+
[~2017-08-30 12:07] MED LIST changes: +BUPIVACAINE HCL 0.25 % INJ/PF (2.5 MG/1 ML) 30 ML VIAL ONE; -BUPIVACAINE INJ/PF LIPOSOME/PF 266 MG/20 ML SDV INFIL PRN; +CEFAZOLIN 2 GM/D5W RTU 2 GM/50 ML RTUPB IV PRN; -IBUPROFEN 800 MG in NORMAL SALINE 250 ML IV PRN; -LANSOPRAZOLE 15 MG TAB.RAP.DR PO PRN; +LIDOCAINE 0.5% INJ-PF (5 MG/ML) 50 ML SDV SUBCUT PRN; -OXYCODONE HCL SR 10 MG TABLET PO PRN; -SCOPOLAMINE HYDROBROMIDE 1.5 MG PATCH.TD72 TD PRN; -VANCOMYCIN HCL 1,000 MG in DEXTROSE 5%-WATER 250 ML IV PRN
[2017-08-30] MEDS ORDERED: MIDAZOLAM 2 MG/2 ML INJ ONE (13:46)
[2017-08-30] MEDS ORDERED: FENTANYL CITRATE INJ/PF 250 MCG/5 ML AMPULE ONE (13:46)
[2017-08-30] MEDS ORDERED: ACETAMINOPHEN 100 ML IV ONE (13:47)
[2017-08-30] MEDS ORDERED: PROPOFOL INJ 200 MG/20 ML VIAL IV ONE (13:47)
[2017-08-30] MEDS ORDERED: EPHEDRINE SULFATE INJ 50 MG/1 ML AMPULE ONE (14:49)
[2017-08-30] MEDS ORDERED: LIDOCAINE 0.5%/EPINEPHRINE INJ 50 ML VIAL ONE (14:52)
[2017-08-30] MEDS ORDERED: DIPHENHYDRAMINE HCL 50 MG/ML VIAL IV PRN (14:59)
[2017-08-30] MEDS ORDERED: ONDANSETRON HCL INJ/PF 4 MG/2 ML SDV IV PRN (14:59)
[2017-08-30] MEDS ORDERED: OXYCODONE-ACETAMINOPHEN 5-325 MG TABLET PO PRN ×4 (14:59→15:52)
[2017-08-30] MEDS ORDERED: MEPERIDINE HCL/PF INJ 25 MG/1 ML DISP.SYRIN IV PRN (14:59)
[2017-08-30] MEDS ORDERED: PROMETHAZINE HCL INJ 25 MG/1 ML VIAL IV PRN ×2 (14:59)
[2017-08-30] MEDS ORDERED: FENTANYL CITRATE INJ/PF 100 MCG/2 ML AMPUL IV PRN ×3 (14:59)
--- NOTE | 2017-08-30 15:42 | Operative Report ---
Operative Report DATE OF SURGERY: 08/30/17 PREOPERATIVE DIAGNOSIS: Right AC joint arthritis POSTOPERATIVE DIAGNOSIS: Same OPERATION: Right shoulder open distal clavicle excision SURGEON: AMADOU WAGNER ANESTHESIA: GA TISSUE REMOVED OR ALTERED: Distal clavicle COMPLICATIONS: None ESTIMATED BLOOD LOSS: 20 mL INTRAOPERATIVE FINDINGS: As above PROCEDURE: Patient received preoperative antibiotics in the holding area and then was transferred to the operating room where he was induced and intubated in supine position. She was placed in the lazy beachchair position and the right shoulder was prepped and draped in normal sterile surgical fashion. Timeout was done identifying the right shoulder AC joint as the correct site. After injecting quarter percent Marcaine with epinephrine into the anticipated incision a 2 inch incision was done longitudinally over the AC joint. Of note the AC joint was marked after putting a needle and identifying the actual joint. After using a 15 blade to cut skin we proceeded to used electrocautery to obtain hemostasis. Able to get on top of the deltoid and split this in a perpendicular fashion over the actual joint. I was able into the left medial or more accurately anterior and posterior exposing the anterior and posterior aspect of the distal clavicle. Small Homans were placed and then with a 10 mm saw I was able to resect about 8-10 mm distal end of the clavicle including the articular portion. Both irrigation was used to clean and then rondure was used to remove any bony debris. I was able to place my index finger on the resected area and make sure that bone was clear from anteriorly to posterior and inferior. I used 0 Vicryl at this point approximate the fascia muscle and overlying joint. Then 2-0 Vicryl was used to approximate the dermis and 4-0 running Monocryl subcuticular closure was done of the incision. Marcaine was injected again. Wound was clean and then benzoin and Steri-Strips were applied. An OpSite dressing was applied and then the drapes were removed. Patient was then placed in a sling and then placed again in supine position where he was successfully extubated. Patient was then transferred to PACU in stable condition.
[2017-08-30] MEDS ORDERED: ROCURONIUM BROMIDE INJ 50 MG/5 ML VIAL IV ONE (15:49)
[2017-08-30] MEDS ORDERED: SUCCINYLCHOLINE CHLORIDE INJ 200 MG/10 ML VIAL ONE (15:49)
[2017-08-30] MEDS ORDERED: METOCLOPRAMIDE HCL INJ/PF 10 MG/2 ML SDV ONE (15:49)
[2017-08-30] MEDS ORDERED: LIDOCAINE 2% INJ-PF (20 MG/ML) 2 ML AMPUL ONE (15:49)
[2017-08-30] MEDS ORDERED: DEXAMETHASONE SOD PHOSPHATE INJ 4 MG/1 ML VIAL ONE (15:49)
[2017-08-30] MEDS ORDERED: GLYCOPYRROLATE INJ 0.4 MG/2 ML VIAL ONE (15:49)
[2017-08-30] MEDS ORDERED: NEOSTIGMINE METHYLSULFATE 10 MG/10 ML VIAL ONE (15:49)
--- NOTE | 2017-08-30 15:53 | Discharge Summary ---
Discharge Summary (SDC) - Discharge Final Diagnosis: As post distal clavicle excision right shoulder Date of Surgery: 08/30/17 Discharge Date: 08/30/17 Treatment or Instructions: Patient is instructed to follow up in 10-14 days. Patient instructed to remove dressing in 4 days then can shower and apply Band- Aids as needed. Patient to wear sling for comfort but okay to remove for shower and pendulum exercises. Pendulum exercises are instructed to be done 3 times a day ideally with breakfast, lunch, dinners and showers. Patient instructed to call if there is any signs of redness or drainage fevers or chills. Prescriptions: Oxycodone HCl/Acetaminophen [Percocet 5-325 mg Tablet] 1 - 2 tab PO ASDIR PRN # 30 tablet PRN Reason: Referrals: DORA CRUZ, [Primary Care Provider] - Respiratory Treatments at Home: Deep Breathing/Coughing Discharge Activity: No Driving, No Lifting/Push/Pulling, Slowly Increase Activity, Walk Frequently Adaptive Devices on Discharge: Axillary Crutches - Nick Report the Following to Your Physician Immediately: Shortness of Breath, Vomiting, Increase in Pain, Fever over 101 Degrees, Unusual Bleeding, Redness, Swelling, Warmth, Increased Soreness, Drainage-Yellow, Drainage-Angel, Drainage- Green, Drainage-Foul Smelling
[2017-08-30] MEDS ORDERED: OXYCODONE-ACETAMINOPHEN 5-325 MG TABLET ONE (16:31)
[2017-08-30 18:07] VITALS: BP 132/75
== END 2017-08-30 17:45 | disposition home or self-care (01) ==
LOC: OROUT 12:07
PROVIDERS: ATTEND Orthopaedic Surgery
PROC: 0PB90ZZ Excision of Right Clavicle, Open Approach (ICD-10-PCS; principal; 2017-08-30 14:15)
DX: M13.811 Other specified arthritis, right shoulder (principal); E11.9 Type 2 diabetes mellitus without complications; J44.9 Chronic obstructive pulmonary disease, unspecified; I11.0 Hypertensive heart disease with heart failure; I50.9 Heart failure, unspecified; C91.10 Chronic lymphocytic leukemia of B-cell type not having achieved remission; Z87.891 Personal history of nicotine dependence
CPT/HCPCS: 36415; 82962; 85025; 80048; 81001; 83036; 71046; 23120; L3650; J2250; J3490 ×4; J1100; J3010; J2765; A9270; J0330; J2704; J0690; J0131; 450

== ENCOUNTER 2017-11-19 17:43 | Emergency (ER) | payer MEDICARE ==
--- NOTE | 2017-11-19 18:30 | ER Document Report ---
ED General - General Chief Complaint: Allergic Reaction Stated Complaint: POSSIBLE ALLERGIC REACTION Time Seen by Provider: 11/19/17 18:19 TRAVEL OUTSIDE OF THE [place] IN LAST 30 DAYS: No - HPI Patient complains to provider of: Rash Notes: Patient has a painful rash on the superior right aspect of frontal bone extending into his hair painful raised rash also some right eye irritation and pain. He then noticed it was spreading on the lateral aspect of his forehead. Patient thinks is an allergic reaction. I have a suspicion of shingles. Denies fever chills. Says is very painful to touch 8/10 burning in nature without radiation nothing is made it better or worse. - Related Data Allergies/Adverse Reactions: adhesive tape [Adhesive Tape] Adverse Reaction (Intermediate, Verified 11/19/17 17:45) SKIN TEARS/PEELS Past Medical History - Social History Smoking Status: Unknown if Ever Smoked Family History: None - Past Medical History Cardiac Medical History: Reports: Hx Congestive Heart Failure, Hx Hypercholesterolemia, Hx Hypertension, Hx Pulmonary Embolism Denies: Hx Atrial Fibrillation, Hx Coronary Artery Disease, Hx Heart Attack, Hx Peripheral Vascular Disease, Hx Heart Murmur Pulmonary Medical History: Reports: Hx Asthma - A CHILD, Hx COPD, Hx Pneumonia, Hx Respiratory Failure, Hx Sleep Apnea - Dx'ed 2005, Does not use CPAP at this time Denies: Hx Bronchitis, Hx Tuberculosis Neurological Medical History: Denies: Hx Cerebrovascular Accident, Hx Seizures Endocrine Medical History: Reports: Hx Diabetes Mellitus Type 2. Denies: Hx Graves' Disease, Hx Hyperthyroidism, Hx Hypothyroidism Renal/ Medical History: Reports: Hx Benign Prostatic Hyperplasia - nocturia x 2/night, Hx Epididymitis, Hx Kidney Stones - "multiple", denies ESWL and/or surgery. Denies: Hx End Stage Renal Disease, Hx Peritoneal Dialysis Malignancy Medical History: Reports Hx Leukemia - Chronic lymphocytic leukemia 2016, Denies Hx Lung Cancer GI Medical History: Reports: Hx Cirrhosis. Denies: Hx Crohn's Disease, Hx Gastroesophageal Reflux Disease, Hx Hiatal Hernia, Hx Irritable Bowel, Hx Liver Failure - Cirrhosis, Fatty Liver, Hx Pancreatitis, Hx Ulcer Musculoskeltal Medical History: Reports Hx Arthritis, Denies Hx Fibromyalgia, Denies Hx Multiple Sclerosis, Denies Hx Muscular Dystrophy Psychiatric Medical History: Reports: Hx Anxiety, Hx Depression - Anxiety Denies: Hx Bipolar Disorder, Hx Dementia, Hx Post Traumatic Stress Disorder, Hx Schizophrenia Traumatic Medical History: Denies: Hx Fractures Infectious Medical History: Denies: Hx HIV Past Surgical History: Reports: Hx Abdominal Surgery, Hx Appendectomy, Hx Bowel Surgery, Hx Orthopedic Surgery - R hip replaced and revised, L knee replaced, cervical fusion, lumbar fusion. Denies: Hx Cholecystectomy, Hx Colostomy, Hx Coronary Artery Bypass Graft, Hx Gastric Bypass Surgery, Hx Herniorrhaphy, Hx Pacemaker, Hx Tonsillectomy - Immunizations Hx Diphtheria, Pertussis, Tetanus Vaccination: No Hx Pneumococcal Vaccination: 06/18/13 Review of Systems - Review of Systems Notes: REVIEW OF SYSTEMS: CONSTITUTIONAL: -fevers, -chills EENT: +eye pain, -difficulty swallowing, -nasal congestion CARDIOVASCULAR: -chest pain, -syncope. RESPIRATORY: -cough, -SOB GASTROINTESTINAL: -abdominal pain, -nausea, -vomiting, -diarrhea GENITOURINARY: -dysuria, -hematuria MUSCULOSKELETAL: -back pain, -neck pain SKIN: + rash HEMATOLOGIC: -easy bruising or bleeding. LYMPHATIC: -swollen, enlarged glands. NEUROLOGICAL: -altered mental status or loss of consciousness, -headache, - neurologic symptoms PSYCHIATRIC: -anxiety, -depression. ALL OTHER SYSTEMS REVIEWED AND NEGATIVE. Physical Exam - Vital signs Vitals: Temp Pulse Resp BP Pulse Ox 98.3 F 88 18 141/80 H 93 11/19/17 17:50 11/19/17 17:50 11/19/17 17:50 11/19/17 17:50 11/19/17 17:50 - Notes Notes: PHYSICAL EXAMINATION: GENERAL: Well-appearing, well-nourished and in no acute distress. HEAD: Atraumatic, normocephalic. EYES: Pupils equal round and reactive to light, extraocular movements intact, sclera anicteric, conjunctiva are normal. ENT: nares patent, oropharynx clear without exudates. Moist mucous membranes. NECK: Normal range of motion, supple without lymphadenopathy LUNGS: Breath sounds clear to auscultation bilaterally and equal. No wheezes rales or rhonchi. HEART: Regular rate and rhythm without murmurs ABDOMEN: Soft, nontender, normoactive bowel sounds. No guarding, no rebound. No masses appreciated. EXTREMITIES: Normal range of motion, no pitting or edema. No cyanosis. NEUROLOGICAL: Cranial nerves grossly intact. Normal speech, normal gait. Normal sensory and motor exams. PSYCH: Normal mood, normal affect. SKIN: Zoster rash on right forehead. Course - Re-evaluation Re-evalutation: 11/19/17 19:41 Unfortunate man presents with painful rash on top of his head extending onto the lateral aspect of his face. Patient describes some eye pain but is no obvious lesions within his eye 11/19/17 19:42 Patient diagnosed with herpes zoster ophthalmicus. Will be initiated on acyclovir therapy 800 mg every 4 hours while awake. Patient will follow up with family doctor. - Vital Signs Vital signs: Temp Pulse Resp BP Pulse Ox 98.6 F 56 L 18 131/80 H 99 11/19/17 18:43 11/19/17 18:43 11/19/17 17:50 11/19/17 18:43 11/19/17 18:43 Discharge - Discharge Clinical Impression: Shingles Qualifiers: Herpes zoster complications: with ocular involvement Herpes zoster ocular complication detail: other herpes zoster eye disease Qualified Code(s): B02.39 - Other herpes zoster eye disease Condition: Stable Disposition: HOME, SELF-CARE Instructions: Ophthalmic Zoster (Shingles of the Eye) ([facility]), Shingles ([facility]) Prescriptions: Acyclovir 800 mg PO Q4H 7 Days #35 tablet Referrals: DORA CRUZ DO [ACTIVE STAFF] - Follow up as needed
[2017-11-19 18:45] VITALS: BP 131/80
== END 2017-11-19 18:45 | disposition home or self-care (01) ==
LOC: ER 17:43
DX: B02.39 Other herpes zoster eye disease (principal); R21 Rash and other nonspecific skin eruption; I10 Essential (primary) hypertension; J44.9 Chronic obstructive pulmonary disease, unspecified; E11.9 Type 2 diabetes mellitus without complications
CPT/HCPCS: 99282

== ENCOUNTER 2018-11-05 07:51 | Day surgery (SDC) | payer MEDICARE ==
[2018-11-05 09:15] LABS: INTERNATIONAL RATION (INR) 0.85; PROTHROMBIN TIME 12.1 SEC (11.4-15.4)
[2018-11-05 09:16] LABS: PARTIAL THROMBOPLASTIN TIME 28.4 SEC (23.5-35.8)
--- NOTE | 2018-11-05 12:30 | RADIOLOGY REPORT (SQ) ---
EXAM DESCRIPTION: CT LUMBAR SPINE WITH COMPLETED DATE/TIME: 11/05/2018 11:21 am REASON FOR STUDY: RADICULOPATHY OF LUMBAR REGION M54.16 RADICULOPATHY, LUMBAR REGION Z79.01 LONG T ERM (CURRENT) USE OF ANTICOAGULANTS COMPARISON: None. TECHNIQUE: After performing lumbar myelogram, axial images were acquired through the lumbar spine wi thout intravenous contrast. Images reviewed with lung, soft tissue and bone windows. Reconstructed coronal and sagittal MPR images reviewed. All images stored on PACS. All CT scanners at this facility use dose modulation, iterative reconstruction, and/or weight based d osing when appropriate to reduce radiation dose to as low as reasonably achievable (ALARA). [facility]: Dose Right [facility]: CareDose [facility]: Dose Right [facility]: Teradose 4D [facility]: [employer] RADIATION DOSE: CT Rad equipment meets quality standard of care and radiation dose reduction techniq ues were employed. CTDIvol: 27.8 mGy. DLP: 850 mGy-cm. mGy. LIMITATIONS: None. FINDINGS: SEGMENTATION: Normal. No transitional anatomy. ALIGNMENT: Grade 1 anterolisthesis of L5 on S1. VERTEBRAL BODIES: No fractures. No dislocation. No acute findings. HARDWARE: Disc hardware and posterior hardware at L5-S1. DISCS: T11-T12: Small right lateral disc protrusion. No significant spinal stenosis. T12-L1: Disc space narrowing with vacuum change, endplate sclerosis, and anterior and posterior oste ophytes. Mild to moderate spinal stenosis. L1-L2: Minimal posterior disc bulge. Facet arthropathy, worse on the left. Ligamentum flavum thicke danette. Mild spinal stenosis. L2-L3: No significant disc bulge. Mild facet arthropathy. No significant stenosis. L3-L4: Mild diffuse posterior disc bulge. Moderate facet arthropathy and ligamentum flavum thickenin g. Mild spinal stenosis. L4-L5: Posterior fusion. Decompressive laminectomy. No significant disc disease. No significant st enosis. L5-S1: Disc fusion and posterior fusion with hardware. No significant stenosis. PEDICLES, TRANSVERSE PROCESSES: No fractures. No dislocation. No acute findings. FACETS, POSTERIOR ELEMENTS: Laminectomy and posterior fusion. Facet arthropathy in the lower lumbar spine. VISUALIZED RIBS: No fractures. SOFT TISSUES: No significant or acute finding in adjacent soft tissues. OTHER: No other significant finding. IMPRESSION: SURGICAL CHANGES AND MULTILEVEL DEGENERATIVE CHANGES DESCRIBED. COMMENT: Patient medication list reviewed: Yes- Quality ID# [id number]:Eligible professional attests to doc umenting in the medical record they obtained, updated, or reviewed the patient's current medications. TECHNICAL DOCUMENTATION: JOB ID: [id number] Quality ID # [id number]: Final reports with documentation of one or more dose reduction techniques (e.g., Au tomated exposure control, adjustment of the mA and/or kV according to patient size, use of iterative reconstruction technique) 2010 [employer]- All Rights Reserved Reading location - IP/workstation name: [email or web address]-
--- NOTE | 2018-11-05 12:34 | RADIOLOGY REPORT (SQ) ---
EXAM DESCRIPTION: MYELOGRAM LUMBAR COMPLETED DATE/TIME: 11/05/2018 11:23 am REASON FOR STUDY: RADICULOPATHY LUMBAR REGION M54.16 RADICULOPATHY, LUMBAR REGION Z79.01 [facility] (CURRENT) USE OF ANTICOAGULANTS COMPARISON: None. FLUOROSCOPY TIME: 2.33 minutes. 15 images saved to PACS. TECHNIQUE: Fluoroscopic guided lumbar myelogram. LIMITATIONS: None. PROCEDURE: After written consent and assessment were obtained, the patient was brought into the fluo roscopy room and placed prone on the table. The patient's lower back was prepped in a sterile fashio n and an entry site was selected under live fluoroscopic guidance. The entry site was anesthetized wi th 1% lidocaine. The spinal needle was advanced through the skin and into the thecal sac at the leve l of L1-L2. Contrast was injected into the thecal sac. Following the procedure the needle was remov ed and a sterile bandage was placed of the site. CONTRAST: 15 mL Omnipaque 180.. IMAGES ACQUIRED: 15 FINDINGS: Contrast is present in the thecal sac. IMPRESSION: LUMBAR MYELOGRAM PERFORMED FOR CT MYELOGRAPHY. PLEASE REFER TO THE REPORT OF THE CT MYE LOGRAM FOR DETAILED DIAGNOSTIC EVALUATION. COMMENT: Patient medication list reviewed: Yes- Quality ID# [id number]:Eligible professional attests to doc umenting in the medical record they obtained, updated, or reviewed the patient's current medications. . Quality ID 145: Final reports for procedures using fluoroscopy that document radiation exposure oscar nataly, or exposure time and number of fluorographic images (if radiation exposure indices are not avail able) TECHNICAL DOCUMENTATION: JOB ID: [id number] [employer]- All Rights Reserved Reading location - IP/workstation name: [email or web address]
[2018-11-05 14:14] VITALS: BP 153/97
== END 2018-11-05 13:30 | disposition home or self-care (01) ==
LOC: RAD 07:51
PROVIDERS: ATTEND Physician Assistant
DX: M54.16 Radiculopathy, lumbar region (principal); Z79.01 Long term (current) use of anticoagulants
CPT/HCPCS: 36415; 72132; 72265; 85610; 85730

== ENCOUNTER → 2019-02-02 | Outpatient (CLI) | payer MEDICAID, MEDICARE ==
--- NOTE | 2019-02-03 09:37 | RADIOLOGY REPORT (SQ) ---
EXAM DESCRIPTION: PET CT SKULL/THIGH COMPLETED DATE/TIME: 02/02/2019 9:47 pm REASON FOR STUDY: (C91.10)CHRONIC LYMPHOCYTIC LEUK OF B-CELL TYPE NOT ACHIEVE REMIS C91.10 CHRONIC LYMPHOCYTIC LEUK OF B-CELL TYPE NOT ACHIEVE R COMPARISON: None. RADIONUCLIDE AND DOSE: 10.6 mCi F18 FDG The route of agent administration: Intravenous FASTING BLOOD SUGAR: 93 mg/dl CONTRAST TYPE AND DOSE: No CT contrast given. TECHNIQUE: Blood glucose level was verified. Above dose of FDG was injected intravenously. 2-D seg mented attenuation correction images were obtained from the base of the skull to the midthighs. Nonc ontrast CT images were obtained for attenuation correction and fusion with emission images. CT image s were performed without oral or intravenous contrast and are not sensitive for parenchymal lesions. A series of overlapping emission PET images were obtained. Images reviewed and manipulated at [facility] work station by the radiologist. Images stored on PACS. LIMITATIONS: Artifact from right hip arthroplasty. FINDINGS: HEAD AND NECK: No areas of abnormal metabolic activity in the soft tissues of the head and neck. CHEST: No areas of abnormal metabolic activity in the chest. ABDOMEN AND PELVIS: Hypermetabolic left inguinal nodes measuring up to 5.0 SUV and 2.0 cm image 232. PROXIMAL LOWER EXTREMITIES: No areas of abnormal metabolic activity in the soft tissues of the lower extremities. BONES: No abnormal metabolic activity in the visualized skeleton. ADDITIONAL CT FINDINGS: Non hypermetabolic retroperitoneal measuring up to 1.5 x 2.5 cm diameter left iliac bifurcation. Morphologically these do not appear significantly changed from 03/30/2017 CT. OTHER: Blood pool 1.8 SUV. Liver background 2.0 SUV. IMPRESSION: Hypermetabolic left inguinal nodes. Non hypermetabolic retroperitoneal adenopathy. TECHNICAL DOCUMENTATION: JOB ID: [id number] [employer]- All Rights Reserved Reading location - IP/workstation name: [email or web address]
== END ==
LOC: RAD 16:20
PROVIDERS: ATTEND Internal Medicine
DX: C91.10 Chronic lymphocytic leukemia of B-cell type not having achieved remission (principal)
CPT/HCPCS: 78815; A9552

== ENCOUNTER 2019-02-19 11:26 | Day surgery (SDC) | payer MEDICARE ==
[2019-02-14 10:00] LABS: HEMOGLOBIN 12.6 g/dL (13.5-17.0); MEAN CORPUSCULAR HEMOGLOBIN 31.2 pg (27.0-33.4); MEAN CORPUSCULAR VOLUME 89 fl (80-97); PLATELET COUNT 353 10^3/uL (150-450); RED BLOOD COUNT 4.04 10^6/uL (4.35-5.55); RED CELL DISTRIBUTION WIDTH 14.3 % (11.5-14.0); WHITE BLOOD COUNT 4.7 10^3/uL (4.0-10.5)
[2019-02-14 11:07] LABS: ANION GAP 12 (5-19); BLOOD UREA NITROGEN 18 mg/dL (7-20); CALCIUM 9.3 mg/dL (8.4-10.2); CARBON DIOXIDE 29 mmol/L (22-30); CHLORIDE 97 mmol/L (98-107); GLUCOSE 176 mg/dL (75-110)
--- NOTE | 2019-02-14 13:47 | EKG REPORT ---
SEVERITY:- BORDERLINE ECG - SINUS RHYTHM PROBABLE LEFT ATRIAL ABNORMALITY : Confirmed by: Arnel Zhang MD 14-Feb-2019 13:46:23
[~2019-02-19 11:26] MED LIST changes: -BUPIVACAINE HCL 0.25 % INJ/PF (2.5 MG/1 ML) 30 ML VIAL ONE; +CEFAZOLIN 1 GM/D5W RTU 1 GM/50 ML RTUPB IV ONE; +CEFAZOLIN 1 GM/D5W RTU 1 GM/50 ML RTUPB IV PRN; -CEFAZOLIN 2 GM/D5W RTU 2 GM/50 ML RTUPB IV PRN
[2019-02-19] MEDS ORDERED: PROPOFOL INJ 200 MG/20 ML VIAL IV ONE (13:27)
[2019-02-19] MEDS ORDERED: FENTANYL CITRATE INJ/PF 100 MCG/2 ML AMPUL ONE (13:27)
[2019-02-19] MEDS ORDERED: MIDAZOLAM 2 MG/2 ML INJ ONE (13:27)
[2019-02-19] MEDS ORDERED: LIDOCAINE 1%/EPINEPHRINE INJ 20 ML VIAL ONE (13:54)
[2019-02-19] MEDS ORDERED: DIPHENHYDRAMINE HCL 50 MG/ML VIAL IV PRN (14:08)
[2019-02-19] MEDS ORDERED: MEPERIDINE HCL/PF INJ 25 MG/1 ML DISP.SYRIN IV PRN (14:08)
[2019-02-19] MEDS ORDERED: PROMETHAZINE HCL INJ 25 MG/1 ML VIAL IV PRN (14:08)
[2019-02-19] MEDS ORDERED: MORPHINE SULFATE 10 MG/ML INJ IV PRN (14:08)
[2019-02-19] MEDS ORDERED: FENTANYL CITRATE INJ/PF 100 MCG/2 ML AMPUL IV PRN ×3 (14:08)
[2019-02-19] MEDS ORDERED: OXYCODONE-ACETAMINOPHEN 5-325 MG TABLET PO PRN ×2 (14:08)
--- NOTE | 2019-02-19 14:34 | Operative Report ---
Operative Report DATE OF SURGERY: 02/19/19 PREOPERATIVE DIAGNOSIS: Chronic lymphocytic leukemia B-cell type POSTOPERATIVE DIAGNOSIS: Same OPERATION: Left superficial inguinal lymph node harvest SURGEON: JOSE M HURTADO ANESTHESIA: LMAC TISSUE REMOVED OR ALTERED: 1 lymph node sent fresh to pathology COMPLICATIONS: None ESTIMATED BLOOD LOSS: Scant INTRAOPERATIVE FINDINGS: See below PROCEDURE: Patient was seen in the preop holding area the left groin was marked, shaved, and washed with Hibiclens. He was then taken to the main operating room where LMAC anesthesia was induced. Left groin was prepped draped sterile fashion. Surgical plan and surgical timeout were conducted. The skin was anesthetized with 1% plain lidocaine. Approximately 4 cm incision was made with the knife, subcutaneous tissue and Nicole's fascia divided as encountered with electrocautery. By palpation we detected the dominant lymph node which is approximately 1-1/2 to 2 cm in diameter, superficial node basin. It was dissected out very carefully using electrocautery. The specimen was transected then sent to pathology fresh for permanent analysis. Wound was checked for bleeding and there was none. Wound closed in layers including Nicole's fascia dermis with 3-0 Vicryl suture and skin with benzoin and Steri-Strips. Sterile honeycomb dressing applied. Patient tolerated the procedure well, taken recovery in stable condition.
--- NOTE | 2019-02-19 14:37 | Discharge Summary ---
Discharge Summary (SDC) - Discharge Final Diagnosis: Lymphadenopathy groin; history of CLL Date of Surgery: 02/19/19 Discharge Date: 02/19/19 Condition: Good Treatment or Instructions: Patient to leave dressing on until it falls off; may shower in 48 hours; resume preoperative medication, diet, activity except avoid heavy lifting pushing pulling or straining for 1 week.; follow-up with [facility] in 1 to 2 weeks. Referrals: ZACK HARTLEY MD [Primary Care Provider] - Discharge Diet: As Tolerated Discharge Activity: No Lifting Over 10 Pounds, No Lifting/Push/Pulling Home Care Assistance: None Needed Report the Following to Your Physician Immediately: Shortness of Breath, Increase in Pain, Fever over 101 Degrees, Unusual Bleeding
[2019-02-19 15:42] VITALS: BP 139/82
== END 2019-02-19 15:44 | disposition home or self-care (01) ==
LOC: OROUT 11:26
PROVIDERS: ATTEND Surgery
DX: R59.9 Enlarged lymph nodes, unspecified (principal); J45.909 Unspecified asthma, uncomplicated; G47.30 Sleep apnea, unspecified; C91.10 Chronic lymphocytic leukemia of B-cell type not having achieved remission; Z86.711 Personal history of pulmonary embolism; Z79.899 Other long term (current) drug therapy; E78.00 Pure hypercholesterolemia, unspecified; I10 Essential (primary) hypertension
CPT/HCPCS: 93005; 36415 ×2; 84132; 85027; 80048; 88305 ×2; 93010; 00400; 38500; J2250; J0690; J3010; J3490; J2704; 400

== ENCOUNTER → 2019-06-17 | Outpatient (CLI) | payer MEDICARE, OTHER ==
--- NOTE | 2019-06-17 14:21 | RADIOLOGY REPORT (SQ) ---
EXAM DESCRIPTION: PET CT SKULL/THIGH COMPLETED DATE/TIME: 06/17/2019 1:29 pm REASON FOR STUDY: LEUKEMIA (C91.10) C91.10 CHRONIC LYMPHOCYTIC LEUK OF B-CELL TYPE NOT ACHIEVE R COMPARISON: 02/02/2019 RADIONUCLIDE AND DOSE: 10.21 mCi F18 FDG The route of agent administration: Intravenous FASTING BLOOD SUGAR: 134 mg/dl CONTRAST TYPE AND DOSE: No CT contrast given. TECHNIQUE: Blood glucose level was verified. Above dose of FDG was injected intravenously. 2-D seg mented attenuation correction images were obtained from the base of the skull to the midthighs. Nonc ontrast CT images were obtained for attenuation correction and fusion with emission images. CT image s were performed without oral or intravenous contrast and are not sensitive for parenchymal lesions. A series of overlapping emission PET images were obtained. Images reviewed and manipulated at [facility] work station by the radiologist. Images stored on PACS. LIMITATIONS: None. FINDINGS: HEAD AND NECK: Anterior sublingual activity and activity in the vocal folds without CT cor relate, likely physiologic. No suspicion areas of abnormal metabolic activity in the soft tissues of the head and neck. CHEST: No areas of abnormal metabolic activity in the chest. ABDOMEN AND PELVIS: Background hepatic activity max SUV 2.8 background blood activity within the abdo alisa aorta max SUV 1.4. Again seen is retroperitoneal adenopathy not significantly changed from tyrell or without significant increased FDG uptake. For reference there is a left para-aortic conglomerate measuring 2.6 x 1.8 cm, previously 2.6 x 1.5 cm (series 3, image 180) (max SUV 1.1). Previously seen hypermetabolic left inguinal adenopathy has decreased from prior. For reference largest node previo usly measured 2 cm in short axis now measuring 12 mm (series 3, image 223) (max SUV 1.6). No areas o f abnormal metabolic activity in the abdomen or pelvis. Expected physiologic activity is present in the genitourinary system and bowel. PROXIMAL LOWER EXTREMITIES: Postsurgical changes from the right hip arthroplasty. There is persisten t heterogeneous uptake about the proximal femur (max SUV 5.7), similar to prior. No other areas of a bnormal uptake within the visualized extremities. BONES: Uptake about the proximal right femur arthroplasty as above. No other discrete foci of abnorm al osseous uptake. ADDITIONAL CT FINDINGS: No evidence of acute intrathoracic process. Cardiomegaly. Scattered three-v essel coronary atherosclerosis. Left hepatic cyst. Aortoiliac atherosclerosis with mild focal dilat ion of the infrarenal abdominal aorta measuring up to 3.0 cm. Grossly stable retroperitoneal adenopa thy. Decreased left inguinal adenopathy. Postsurgical changes from the right hip arthroplasty. The re is a unchanged non hypermetabolic collection abutting the right acetabulum and ilium measuring 5.0 cm maximally. Heterotopic ossification about the right proximal femur. IMPRESSION: 1. Grossly stable non hypermetabolic retroperitoneal adenopathy (max SUV 1.1). 2. Decreased size and FDG uptake within the previously described left inguinal adenopathy (max SUV 1 .6, previously 5.0). No new hypermetabolic adenopathy. 3. Grossly similar appearance of the heterogeneous uptake about the proximal right femoral arthropla sty likely related to hardware and postsurgical change although infection is not entirely excluded. TECHNICAL DOCUMENTATION: JOB ID: [id number] [employer]- All Rights Reserved Reading location - IP/workstation name: [email or web address]
== END ==
LOC: RAD 07:41
PROVIDERS: ATTEND Internal Medicine
DX: C91.10 Chronic lymphocytic leukemia of B-cell type not having achieved remission (principal)
CPT/HCPCS: 78815; A9552

== ENCOUNTER → 2020-01-27 | Outpatient (CLI) | payer MEDICARE, OTHER ==
--- NOTE | 2020-01-28 11:00 | RADIOLOGY REPORT (SQ) ---
EXAM DESCRIPTION: PET CT SKULL/THIGH IMAGES COMPLETED DATE/TIME: 01/27/2020 8:58 pm REASON FOR STUDY: LEUKEMIA (C91.10) C91.10 CHRONIC LYMPHOCYTIC LEUK OF B-CELL TYPE NOT ACHIEVE R COMPARISON: PET from 06/17/2019. RADIONUCLIDE AND DOSE: 10.7 mCi F18 FDG The route of agent administration: Intravenous FASTING BLOOD SUGAR: 124 mg/dl CONTRAST TYPE AND DOSE: No CT contrast given. TECHNIQUE: Blood glucose level was verified. Above dose of FDG was injected intravenously. 2-D seg mented attenuation correction images were obtained from the base of the skull to the midthighs. Nonc ontrast CT images were obtained for attenuation correction and fusion with emission images. CT image s were performed without oral or intravenous contrast and are not sensitive for parenchymal lesions. A series of overlapping emission PET images were obtained. Images reviewed and manipulated at [facility] work station by the radiologist. Images stored on PACS. LIMITATIONS: None. FINDINGS: HEAD AND NECK: No areas of abnormal metabolic activity in the soft tissues of the head and neck. CHEST: No areas of abnormal metabolic activity in the chest. ABDOMEN AND PELVIS: The liver demonstrates homogeneous FDG uptake with an average SUV of 2.1. There is expected physiologic activity throughout the gastrointestinal and genitourinary tract. The enlarg ed retroperitoneal lymph nodes described on the prior PET have decreased in size and once more demons trate no avid FDG uptake ; for reference the 8 mm short-axis left common iliac lymph node on image 19 1 of series 3 measured 17 mm on the prior PET. The left inguinal lymph nodes have also decreased in size and also demonstrate no avid FDG uptake ; for reference the 6 mm short axis lymph node on image 242 of series 3 measured 9 mm on the prior PET. There is expected physiologic activity throughout th e gastrointestinal and genitourinary tracts. There are no areas of abnormal metabolic activity in th e abdomen and pelvis. PROXIMAL LOWER EXTREMITIES: No areas of abnormal metabolic activity in the soft tissues of the lower extremities. BONES: The mild uptake around the proximal right femur is unchanged. ADDITIONAL CT FINDINGS: Atherosclerotic calcification of the thoracic aorta and coronary arteries. T here is no cardiomegaly or pericardial effusion. There is no acute consolidation, ground-glass opaci fication, pleural effusion or pneumothorax. The cyst in the left hepatic lobe is unchanged. There i s atherosclerotic calcification of the abdominal aorta and iliac arteries with mild unchanged aneurys mal dilatation of the infrarenal abdominal aorta. The artifact from the left hip prosthesis limits ev aluation of the adjacent structures. The heterogeneous structure anterior to the right acetabulum th at measures up to 5 mm in diameter is unchanged. The heterotopic calcification around the proximal r ight femur is also unchanged. There is colonic diverticulosis without diverticulitis. There is balderas spedicular and interbody fusion hardware at L5-S1. The OTHER: No other findings. IMPRESSION: The retroperitoneal and left inguinal lymph nodes described on the prior PET have decrea sed in size and demonstrate no abnormal FDG uptake. The uptake around the proximal right femur is un changed. There are no new areas of abnormal metabolic uptake. TECHNICAL DOCUMENTATION: JOB ID: [id number] [employer]- All Rights Reserved Reading location - IP/workstation name: [email or web address]
== END ==
LOC: RAD 08:11
PROVIDERS: ATTEND Internal Medicine
DX: C91.10 Chronic lymphocytic leukemia of B-cell type not having achieved remission (principal)
CPT/HCPCS: 78815; A9552